=== PATIENT | female | born 1960 | race Caucasian/White ===

== ENCOUNTER → 2016-05-21 | Outpatient (CLI) | payer MEDICARE, MEDICAID | LOC: RAD 10:38 | PROVIDERS: ATTEND Urology | DX: N20.0 Calculus of kidney (principal) | CPT/HCPCS: 74000 ==

== ENCOUNTER → 2016-05-21 | Outpatient (REF) | payer MEDICARE, MEDICAID | LOC: LAB 14:18 | PROVIDERS: ATTEND Urology | DX: N20.0 Calculus of kidney (principal) | CPT/HCPCS: 87077; 87088; 87186 ==